=== PATIENT | female | born 2000 | race African-American/Black ===

== ENCOUNTER 2022-02-03 14:06 | Emergency (ER) | payer MEDICAID ==
[~2022-02-03] VITALS: Ht 149.9 cm; Wt 66.0 kg
[2022-02-03 14:14] VITALS: BP 123/48
[2022-02-03 16:53] LABS: CLARITY URINE CLEAR (CLEAR); COLOR URINE YELLOW (YELLOW); KETONES URINE TRACE (NEGATIVE); LEUKOCYTE ESTERASE URINE NEGATIVE (NEGATIVE); NITRITE URINE NEGATIVE (NEGATIVE); OCCULT BLOOD URINE 2+ (NEGATIVE); PH URINE 6.5 (4.5-8.0); PROTEIN URINE NEGATIVE (NEGATIVE); SPECIFIC GRAVITY URINE 1.026 (1.005-1.030)
[2022-02-03] MEDS ORDERED: CEPH500C2 MT (17:17)
== END 2022-02-03 18:58 | disposition home or self-care (01) ==
LOC: ER 14:06
DX: N39.0 Urinary tract infection, site not specified (principal)
CPT/HCPCS: 81003; 81025; 87210; 99283

== ENCOUNTER 2022-02-13 21:24 | Emergency (ER) | payer MEDICAID ==
[~2022-02-13] VITALS: Ht 210.8 cm; Wt 67.2 kg
[~2022-02-13 21:24] MED LIST: CEPH500C2 MT
[2022-02-13 21:40] VITALS: BP 137/75
[2022-02-13] MEDS ORDERED: IBUP-2029 MT (23:39)
[2022-02-13] MEDS ORDERED: T3 PO (23:39)
[2022-02-13] MEDS ORDERED: AMOX1TAB16 MT (23:39)
== END 2022-02-13 23:50 | disposition home or self-care (01) ==
LOC: ER 21:24
DX: K04.7 Periapical abscess without sinus (principal)
CPT/HCPCS: 81025; 99283

== ENCOUNTER 2022-03-02 22:11 | Emergency (ER) | payer MEDICAID ==
[~2022-03-02] VITALS: Ht 147.3 cm; Wt 66.0 kg
[~2022-03-02 22:11] MED LIST changes: +AMOX1TAB16 MT; +IBUP-2029 MT; +T3 PO
[2022-03-02] MEDS ORDERED: HYDROCODONE/ACETAMINOPHEN 5/325MG TABLET PO ONE (23:30)
[2022-03-02] MEDS ORDERED: AMOXICILLIN 500 MG CAPSULE PO ONE (23:30)
[2022-03-02] MEDS ORDERED: KETOROLAC 60MG/2ML VIAL IM ONE (23:30)
[2022-03-03] MEDS ORDERED: IBUP-2028 MT (00:51)
[2022-03-03] MEDS ORDERED: T3 PO (00:51)
[2022-03-03] MEDS ORDERED: AMOX-494 MT (00:51)
[2022-03-03 01:07] VITALS: BP 128/77
== END 2022-03-03 01:07 | disposition home or self-care (01) ==
LOC: ER 22:11
DX: K04.7 Periapical abscess without sinus (principal); J45.909 Unspecified asthma, uncomplicated; F12.10 Cannabis abuse, uncomplicated
CPT/HCPCS: 81025; 96372; 99283; J1885